=== PATIENT | male | born 1960 | race Caucasian/White ===

== ENCOUNTER 2019-01-31 02:17 | Emergency (ER) | payer MEDICARE ==
[~2019-01-31] VITALS: Ht 165.1 cm; Wt 79.0 kg
[2019-01-31 04:31] LABS: BASOPHILS % 0.9 % (0.0-2.0); EOSINOPHILS % 1.6 % (0.0-5.0); HEMATOCRIT. 36.5 % (42.0-52.0); HEMOGLOBIN. 12.1 g/dL (14.0-18.0); LYMPHOCYTES % 27.3 % (20.0-50.0); MEAN CORPUSCULAR VOLUME 84.4 fL (80.0-94.0); MEAN PLATELET VOLUME 9.7 fl (7.4-10.4); MONOCYTES % 7.8 % (2.0-8.0); NEUTROPHILS % 62.4 % (40.0-76.0); PLATELET 221 x1000/uL (130-400); RED BLOOD CELL COUNT 4.32 mill/uL (4.7-6.1); RED CELL DISTRIBUTION WIDTH 14.7 % (11.6-14.6)
[2019-01-31 04:35] LABS: CHLORIDE 102 mEq/L (98-107)
[2019-01-31] MEDS ORDERED: SODIUM CHLORIDE 0.9% 1,000 ML IV ONE ×2 (04:48→07:29)
[2019-01-31 05:25] LABS: CLARITY URINE CLEAR (CLEAR); COLOR URINE YELLOW (YELLOW); KETONES URINE NEGATIVE (NEGATIVE); LEUKOCYTE ESTERASE URINE NEGATIVE (NEGATIVE); NITRITE URINE NEGATIVE (NEGATIVE); OCCULT BLOOD URINE TRACE (NEGATIVE); PROTEIN URINE 3+ (NEGATIVE); SPECIFIC GRAVITY URINE 1.022 (1.005-1.030); UROBILINOGEN URINE 0.2 E.U./dL (0.2-1.0)
[2019-01-31] MEDS ORDERED: ACETAMINOPHEN 325MG TABLET PO ONE (05:45)
[2019-01-31] MEDS ORDERED: DOCUSATE SODIUM 250MG CAPSULE PO ONE (05:45)
[2019-01-31] MEDS ORDERED: INSULIN REGULAR (HUMULIN R) 300UNITS/3ML SUBCUT ONE (07:45)
[2019-01-31] MEDS ORDERED: MAGNESIUM/ALUMINUM HYDROXIDE/SIMETHICONE 30ML UDC PO ONE (07:45)
[2019-01-31 12:37] VITALS: BP 156/71
== END 2019-01-31 12:43 | disposition home or self-care (01) ==
LOC: ER 02:17
DX: R14.0 Abdominal distension (gaseous) (principal); K59.00 Constipation, unspecified; E11.9 Type 2 diabetes mellitus without complications; I49.9 Cardiac arrhythmia, unspecified; Z98.890 Other specified postprocedural states; Z90.89 Acquired absence of other organs
CPT/HCPCS: 36415; 74018; 80053; 81003; 82962; 83690; 85025; 96372; 99284; J1815; J7030

== ENCOUNTER 2019-02-01 17:19 | Emergency (ER) | payer BC, MEDICARE ==
[~2019-02-01] VITALS: Ht 165.1 cm; Wt 91.0 kg
[2019-02-01 19:03] LABS: BASOPHILS % 0.7 % (0.0-2.0); EOSINOPHILS % 1.2 % (0.0-5.0); HEMATOCRIT. 40.1 % (42.0-52.0); HEMOGLOBIN. 13.3 g/dL (14.0-18.0); LYMPHOCYTES % 32.4 % (20.0-50.0); MEAN CORPUSCULAR HEMOGLOBIN 27.9 pg (28.0-32.0); MEAN CORPUSCULAR VOLUME 84.2 fL (80.0-94.0); MEAN PLATELET VOLUME 9.9 fl (7.4-10.4); MONOCYTES % 6.6 % (2.0-8.0); NEUTROPHILS % 59.1 % (40.0-76.0); PLATELET 229 x1000/uL (130-400); RED BLOOD CELL COUNT 4.76 mill/uL (4.7-6.1); RED CELL DISTRIBUTION WIDTH 14.7 % (11.6-14.6)
[2019-02-01 19:06] LABS: CHLORIDE 105 mEq/L (98-107)
[2019-02-01 19:58] LABS: CLARITY URINE CLEAR (CLEAR); COLOR URINE YELLOW (YELLOW); KETONES URINE NEGATIVE (NEGATIVE); LEUKOCYTE ESTERASE URINE NEGATIVE (NEGATIVE); NITRITE URINE NEGATIVE (NEGATIVE); OCCULT BLOOD URINE TRACE (NEGATIVE); PH URINE 5.5 (4.5-8.0); PROTEIN URINE 4+ (NEGATIVE); UROBILINOGEN URINE 0.2 E.U./dL (0.2-1.0)
[2019-02-01] MEDS ORDERED: INSULIN REGULAR (HUMULIN R) UD 100 UNITS/ML SYR IV ONE (20:30)
[2019-02-01] MEDS ORDERED: SODIUM CHLORIDE 0.9% 1,000 ML IV ONE (20:30)
[2019-02-01 21:40] VITALS: BP 140/70
== END 2019-02-01 22:51 | disposition home or self-care (01) ==
LOC: ER 18:52
DX: K59.00 Constipation, unspecified (principal); E11.65 Type 2 diabetes mellitus with hyperglycemia; Z90.89 Acquired absence of other organs
CPT/HCPCS: 36415; 80053; 81003; 82962; 83690; 85025; 96360; 96361; 99283; J1815; J7030

== ENCOUNTER 2021-04-26 11:25 | Inpatient (IN) | payer BC, MEDICARE ==
[~2021-04-26] VITALS: Ht 167.6 cm; Wt 78.5 kg
[2021-04-26] MEDS ORDERED: lasix (11:35)
[2021-04-26] MEDS ORDERED: PIPERACILLIN/TAZ 3.375G PREMIX 50 ML IV ONE (17:15)
[2021-04-26] MEDS ORDERED: MORPHINE SULFATE 4 MG/ML CPJ (NOT FOR IM USE) IV STA (17:15)
[2021-04-26] MEDS ORDERED: VANCOMYCIN 1 G PREMIX 200 ML IV ONE (17:15)
[2021-04-26] MEDS ORDERED: ONDANSETRON HCL 4MG/2ML INJ IV STA (17:15)
[2021-04-26 17:46] LABS: BASOPHILS % 0.3 % (0.0-2.0); HEMOGLOBIN. 12.8 g/dL (14.0-18.0); LYMPHOCYTES % 7.2 % (20.0-50.0); MEAN CORPUSCULAR HEMOGLOBIN 26.3 pg (28.0-32.0); MEAN CORPUSCULAR VOLUME 84.1 fL (80.0-94.0); MEAN PLATELET VOLUME 8.5 fl (7.4-10.4); MONOCYTES % 5.2 % (2.0-8.0); NEUTROPHILS % 87.3 % (40.0-76.0); PLATELET 254 x1000/uL (130-400); RED BLOOD CELL COUNT 4.88 mill/uL (4.7-6.1); RED CELL DISTRIBUTION WIDTH 18.6 % (11.6-14.6)
[2021-04-26 17:50] LABS: CHLORIDE 113 mEq/L (98-107)
[2021-04-26 18:11] LABS: CREATINE KINASE 1223 IU/L (39-308)
[2021-04-26] MEDS ORDERED: ASPIRIN 81MG TABLET PO ONE (18:15)
[2021-04-26] MEDS ORDERED: FUROSEMIDE 20MG/2ML VIAL IVP ONE (19:00)
[2021-04-27] MEDS ORDERED: FUROSEMIDE 40MG/4ML VIAL IVP SCH (09:00)
[2021-04-27] MEDS: ASPIRIN 81MG TABLET PO SCH (09:11)
[2021-04-27 10:44] VITALS: BP 108/68
[2021-04-27 11:00] VITALS: BP 123/69
[2021-04-27 12:00] VITALS: BP 123/69
[2021-04-27] MEDS ORDERED: CLONIDINE 0.1MG TABLET PO PRN ×2 (12:00→18:30)
[2021-04-27] MEDS: BLOOD SUGAR DIAGNOSTIC STRIP TEST SCH ×3 (12:10→21:00)
[2021-04-27] MEDS ORDERED: LEVOFLOXACIN 500MG PREMIX 100 ML IV NR (13:00)
[2021-04-27] MEDS: HYDROCODONE/ACETAMINOPHEN 5/325MG TABLET PO PRN (14:07)
[2021-04-27] MEDS: INSULIN LISPRO 100 UNITS/ML SUBCUT SCH ×3 (14:11→21:00)
[2021-04-27 16:00] VITALS: BP 105/72
[2021-04-27] MEDS: METOPROLOL TARTRATE 25MG TABLET PO SCH ×2 (17:30→19:03)
[2021-04-27] MEDS: ENOXAPARIN 40MG/0.4ML SYR SUBCUT SCH (17:39)
[2021-04-27] MEDS ORDERED: VANCOMYCIN 1 G PREMIX 200 ML IV SCH (18:00)
[2021-04-27] MEDS ORDERED: ACETAMINOPHEN 325MG TABLET PO PRN (18:30)
[2021-04-27] MEDS ORDERED: MAGNESIUM/ALUMINUM HYDROXIDE/SIMETHICONE 30ML UDC PO PRN (18:30)
[2021-04-27] MEDS ORDERED: GUAIFENESIN 200MG/10ML SUGAR FREE UDC PO PRN (18:30)
[2021-04-27] MEDS ORDERED: ENOXAPARIN 40MG/0.4ML SYR SUBCUT SCH (18:30)
[2021-04-27] MEDS: CEFEPIME 1,000 MG in DEXTROSE 5% WATER 50 ML IV SCH (18:41)
[2021-04-27] MEDS: FUROSEMIDE 100MG/10ML VIAL IVP SCH (18:42)
[2021-04-27] MEDS ORDERED: NALOXONE HCL 0.4MG/ML VIAL IV PRN (18:45)
[2021-04-27 20:00] VITALS: BP 87/51
[2021-04-27] MEDS: SODIUM CHLORIDE 0.9% INJ 3ML FLUSH IVF SCH (22:33)
[2021-04-28] VITALS: BP 87/42
[2021-04-28] MEDS ORDERED: DEXT 5%/0.9% NACL 500 ML IV ONE (06:30)
[2021-04-28] MEDS ORDERED: DEXT 5%/0.9% NACL 500 ML IV SCH (06:30)
[2021-04-28] MEDS: FUROSEMIDE 100MG/10ML VIAL IVP SCH ×2 (07:03→18:27)
[2021-04-28] MEDS: SODIUM CHLORIDE 0.9% INJ 3ML FLUSH IVF SCH ×3 (07:03→22:00)
[2021-04-28] MEDS: CEFEPIME 1,000 MG in DEXTROSE 5% WATER 50 ML IV SCH ×2 (07:04→17:24)
[2021-04-28] MEDS: BLOOD SUGAR DIAGNOSTIC STRIP TEST SCH ×4 (07:10→21:00)
[2021-04-28] MEDS: INSULIN LISPRO 100 UNITS/ML SUBCUT SCH ×4 (07:40→21:00)
[2021-04-28 08:00] VITALS: BP 90/48
[2021-04-28] MEDS: ASPIRIN 81MG TABLET PO SCH (08:58)
[2021-04-28] MEDS: METOPROLOL TARTRATE 25MG TABLET PO SCH ×2 (09:00→21:00)
[2021-04-28 12:00] VITALS: BP 95/56
[2021-04-28] MEDS ORDERED: LEVOFLOXACIN 250MG PREMIX 50 ML IV SCH (13:00)
[2021-04-28 16:00] VITALS: BP 100/49
[2021-04-28] MEDS: ENOXAPARIN 40MG/0.4ML SYR SUBCUT SCH (16:07)
[2021-04-28] MEDS ORDERED: METOLAZONE 2.5MG TABLET PO SCH (17:30)
[2021-04-28 20:00] VITALS: BP 130/73
[2021-04-28] MEDS: HYDROCODONE/ACETAMINOPHEN 5/325MG TABLET PO PRN (21:40)
[2021-04-28] MEDS: ZOLPIDEM TARTRATE 5MG TABLET PO PRN (23:03)
[2021-04-29] VITALS: BP 127/78
[2021-04-29 04:00] VITALS: BP 87/40
[2021-04-29] MEDS: SODIUM CHLORIDE 0.9% INJ 3ML FLUSH IVF SCH ×3 (05:37→21:57)
[2021-04-29] MEDS: FUROSEMIDE 100MG/10ML VIAL IVP SCH ×2 (05:37→18:00)
[2021-04-29] MEDS: CEFEPIME 1,000 MG in DEXTROSE 5% WATER 50 ML IV SCH (05:37)
[2021-04-29] MEDS: INSULIN LISPRO 100 UNITS/ML SUBCUT SCH ×4 (06:54→21:00)
[2021-04-29] MEDS: BLOOD SUGAR DIAGNOSTIC STRIP TEST SCH ×4 (06:54→21:55)
[2021-04-29 08:00] VITALS: BP 119/94
[2021-04-29] MEDS: ASPIRIN 81MG TABLET PO SCH (09:00)
[2021-04-29] MEDS: METOPROLOL TARTRATE 25MG TABLET PO SCH ×2 (09:00→20:37)
[2021-04-29 12:00] VITALS: BP 79/52
[2021-04-29] MEDS: DEXTROSE 50% WATER 50ML SYRINGE IV PRN (12:29)
[2021-04-29] MEDS ORDERED: VANCOMYCIN 1 G PREMIX 200 ML IV SCH (13:00)
[2021-04-29 16:00] VITALS: BP 109/61
[2021-04-29] MEDS: CEFTRIAXONE 1,000 MG in DEXTROSE 5% WATER 50 ML IV SCH (16:28)
[2021-04-29] MEDS: ENOXAPARIN 30MG/0.3ML SYR SUBCUT SCH (18:00)
[2021-04-29 20:00] VITALS: BP 114/51
[2021-04-29] MEDS: METRONIDAZOLE 500MG TABLET PO SCH ×3 (20:36→21:57)
[2021-04-30] VITALS: BP 107/65
[2021-04-30 04:00] VITALS: BP 108/62
[2021-04-30] MEDS: SODIUM CHLORIDE 0.9% INJ 3ML FLUSH IVF SCH ×3 (05:57→21:10)
[2021-04-30] MEDS: FUROSEMIDE 100MG/10ML VIAL IVP SCH ×2 (05:59→11:44)
[2021-04-30] MEDS: BLOOD SUGAR DIAGNOSTIC STRIP TEST SCH ×4 (05:59→20:54)
[2021-04-30] MEDS: INSULIN LISPRO 100 UNITS/ML SUBCUT SCH ×4 (05:59→20:54)
[2021-04-30 08:00] VITALS: BP 104/62
[2021-04-30] MEDS ORDERED: SODIUM BICARBONATE 8.4% 1 MEQ/ML 50ML SYR IV SCH (09:00)
[2021-04-30] MEDS: ASPIRIN 81MG TABLET PO SCH ×2 (09:00→10:03)
[2021-04-30] MEDS: METRONIDAZOLE 500MG TABLET PO SCH ×3 (09:00→21:02)
[2021-04-30] MEDS: METOPROLOL TARTRATE 25MG TABLET PO SCH ×3 (09:00→21:02)
[2021-04-30] MEDS: SODIUM POLYSTYRENE SULFONATE 15 G/60 ML BOT PO SCH ×2 (10:00→10:07)
[2021-04-30 12:00] VITALS: BP 94/54
[2021-04-30] MEDS: CEFTRIAXONE 1,000 MG in DEXTROSE 5% WATER 50 ML IV SCH (16:11)
[2021-04-30] MEDS: ENOXAPARIN 30MG/0.3ML SYR SUBCUT SCH (17:57)
[2021-04-30 20:00] VITALS: BP 110/85
[2021-04-30] MEDS: HYDROCODONE/ACETAMINOPHEN 5/325MG TABLET PO PRN (21:03)
[2021-05-01] VITALS: BP 111/72
[2021-05-01] MEDS: ZOLPIDEM TARTRATE 5MG TABLET PO PRN (01:49)
[2021-05-01 04:00] VITALS: BP 99/77
[2021-05-01] MEDS: FUROSEMIDE 100MG/10ML VIAL IVP SCH ×2 (05:39→18:00)
[2021-05-01] MEDS: SODIUM CHLORIDE 0.9% INJ 3ML FLUSH IVF SCH ×3 (05:40→21:02)
[2021-05-01] MEDS: BLOOD SUGAR DIAGNOSTIC STRIP TEST SCH ×4 (06:23→21:04)
[2021-05-01] MEDS: INSULIN LISPRO 100 UNITS/ML SUBCUT SCH ×4 (06:23→21:00)
[2021-05-01 08:07] VITALS: BP 119/75
[2021-05-01] MEDS: METOPROLOL TARTRATE 25MG TABLET PO SCH ×2 (09:00→21:00)
[2021-05-01] MEDS: ASPIRIN 81MG TABLET PO SCH (11:01)
[2021-05-01] MEDS: METRONIDAZOLE 500MG TABLET PO SCH ×2 (11:02→20:58)
[2021-05-01 12:21] VITALS: BP 121/78
[2021-05-01] MEDS: HYDROCODONE/ACETAMINOPHEN 5/325MG TABLET PO PRN ×2 (15:51→21:00)
[2021-05-01] MEDS: CEFTRIAXONE 1,000 MG in DEXTROSE 5% WATER 50 ML IV SCH (15:51)
[2021-05-01 16:17] VITALS: BP 126/77
[2021-05-01] MEDS: ENOXAPARIN 30MG/0.3ML SYR SUBCUT SCH (18:00)
[2021-05-01 20:00] VITALS: BP 127/73
[2021-05-02] VITALS: BP 117/59
[2021-05-02] MEDS: FUROSEMIDE 100MG/10ML VIAL IVP SCH ×2 (05:55→17:23)
[2021-05-02] MEDS: SODIUM CHLORIDE 0.9% INJ 3ML FLUSH IVF SCH ×3 (05:55→22:00)
[2021-05-02] MEDS: BLOOD SUGAR DIAGNOSTIC STRIP TEST SCH ×4 (06:08→20:25)
[2021-05-02] MEDS: INSULIN LISPRO 100 UNITS/ML SUBCUT SCH ×3 (06:08→12:40)
[2021-05-02 08:00] VITALS: BP 125/58
[2021-05-02] MEDS: ASPIRIN 81MG TABLET PO SCH ×2 (08:55→09:00)
[2021-05-02] MEDS: METRONIDAZOLE 500MG TABLET PO SCH ×2 (08:55→20:25)
[2021-05-02] MEDS: METOPROLOL TARTRATE 25MG TABLET PO SCH ×2 (08:55→08:58)
[2021-05-02 09:56] LABS: BASOPHILS % 0.3 % (0.0-2.0); EOSINOPHILS % 0.8 % (0.0-5.0); HEMOGLOBIN. 15.1 g/dL (14.0-18.0); LYMPHOCYTES % 8.2 % (20.0-50.0); MEAN CORPUSCULAR HEMOGLOBIN 26.3 pg (28.0-32.0); MEAN CORPUSCULAR VOLUME 82.1 fL (80.0-94.0); MEAN PLATELET VOLUME 8.5 fl (7.4-10.4); MONOCYTES % 7.7 % (2.0-8.0); PLATELET 204 x1000/uL (130-400); RED BLOOD CELL COUNT 5.72 mill/uL (4.7-6.1); RED CELL DISTRIBUTION WIDTH 18.4 % (11.6-14.6)
[2021-05-02 10:16] LABS: CHLORIDE 107 mEq/L (98-107)
[2021-05-02 12:00] VITALS: BP 140/110
[2021-05-02] MEDS ORDERED: SODIUM POLYSTYRENE SULFONATE 15 G/60 ML BOT PO NR (13:00)
[2021-05-02 16:00] VITALS: BP 103/65
[2021-05-02] MEDS: CEFTRIAXONE 1,000 MG in DEXTROSE 5% WATER 50 ML IV SCH (16:08)
[2021-05-02] MEDS: ENOXAPARIN 30MG/0.3ML SYR SUBCUT SCH ×2 (17:23→17:30)
[2021-05-02 20:00] VITALS: BP 105/59
[2021-05-02] MEDS ORDERED: NALOXONE HCL 0.4MG/ML VIAL IV PRN (21:00)
[2021-05-02] MEDS: HYDROCODONE/ACETAMINOPHEN 5/325MG TABLET PO PRN (21:39)
[2021-05-03] VITALS: BP 107/57
[2021-05-03 04:00] VITALS: BP 108/59
[2021-05-03] MEDS: FUROSEMIDE 100MG/10ML VIAL IVP SCH (05:34)
[2021-05-03] MEDS: SODIUM CHLORIDE 0.9% INJ 3ML FLUSH IVF SCH ×3 (05:35→21:03)
[2021-05-03 05:56] LABS: HEMATOCRIT. 46.7 % (42.0-52.0); HEMOGLOBIN. 14.8 g/dL (14.0-18.0); MEAN CORPUSCULAR HEMOGLOBIN 26.1 pg (28.0-32.0); MEAN CORPUSCULAR VOLUME 82.1 fL (80.0-94.0); MEAN PLATELET VOLUME 8.9 fl (7.4-10.4); PLATELET 197 x1000/uL (130-400); RED BLOOD CELL COUNT 5.68 mill/uL (4.7-6.1); RED CELL DISTRIBUTION WIDTH 18.4 % (11.6-14.6)
[2021-05-03 06:35] LABS: PHOSPHORUS 8.2 mg/dL (2.5-4.9)
[2021-05-03] MEDS: BLOOD SUGAR DIAGNOSTIC STRIP TEST SCH ×2 (07:10→20:17)
[2021-05-03] MEDS: INSULIN LISPRO 100 UNITS/ML SUBCUT SCH ×3 (07:40→21:00)
[2021-05-03 08:00] VITALS: BP 105/58
[2021-05-03] MEDS: ASPIRIN 81MG TABLET PO SCH (09:00)
[2021-05-03] MEDS: METRONIDAZOLE 500MG TABLET PO SCH (09:00)
[2021-05-03] MEDS ORDERED: SODIUM BICARBONATE 8.4% 1 MEQ/ML 50ML SYR IV NR (09:30)
[2021-05-03 10:33] LABS: T4 FREE 0.55 ng/dL (0.76-1.46)
[2021-05-03 12:00] VITALS: BP 106/51
[2021-05-03] MEDS ORDERED: CEFTRIAXONE 1 G PREMIX 50 ML IV SCH (15:30)
[2021-05-03 16:00] VITALS: BP 101/57
[2021-05-03] MEDS: CEFTRIAXONE 1,000 MG in DEXTROSE 5% WATER 50 ML IV SCH (16:43)
[2021-05-03] MEDS: METRONIDAZOLE 500 MG PREMIX 100 ML IV SCH (16:43)
[2021-05-03] MEDS: ENOXAPARIN 30MG/0.3ML SYR SUBCUT SCH (16:44)
[2021-05-03] MEDS: DEXTROSE 50% WATER 50ML SYRINGE IV PRN (18:06)
[2021-05-03 20:00] VITALS: BP 107/50
[2021-05-03 22:28] LABS: PLATELET ESTIMATE NORMAL
[2021-05-03] MEDS: DIPHENHYDRAMINE 50MG/ML VIAL IV PRN (22:53)
[2021-05-04] VITALS: BP 119/69
[2021-05-04 04:00] VITALS: BP 104/81
[2021-05-04] MEDS: BLOOD SUGAR DIAGNOSTIC STRIP TEST SCH ×4 (05:29→20:30)
[2021-05-04] MEDS: SODIUM CHLORIDE 0.9% INJ 3ML FLUSH IVF SCH ×3 (05:42→21:36)
[2021-05-04] MEDS: LEVOTHYROXINE SODIUM 25MCG TABLET PO SCH (05:43)
[2021-05-04] MEDS: INSULIN LISPRO 100 UNITS/ML SUBCUT SCH ×4 (05:43→21:00)
[2021-05-04 08:00] VITALS: BP 129/73
[2021-05-04] MEDS: HYDROCODONE/ACETAMINOPHEN 5/325MG TABLET PO PRN (08:24)
[2021-05-04] MEDS: ASPIRIN 81MG TABLET PO SCH (08:31)
[2021-05-04] MEDS: METRONIDAZOLE 500 MG PREMIX 100 ML IV SCH (08:35)
[2021-05-04 11:01] LABS: BASOPHILS % 0.7 % (0.0-2.0); EOSINOPHILS % 1.7 % (0.0-5.0); HEMATOCRIT. 39.2 % (42.0-52.0); HEMOGLOBIN. 13.1 g/dL (14.0-18.0); LYMPHOCYTES % 10.6 % (20.0-50.0); MEAN CORPUSCULAR HEMOGLOBIN 26.6 pg (28.0-32.0); MEAN CORPUSCULAR VOLUME 79.9 fL (80.0-94.0); MEAN PLATELET VOLUME 8.1 fl (7.4-10.4); MONOCYTES % 10.2 % (2.0-8.0); NEUTROPHILS % 76.8 % (40.0-76.0); PLATELET 186 x1000/uL (130-400); RED BLOOD CELL COUNT 4.91 mill/uL (4.7-6.1); RED CELL DISTRIBUTION WIDTH 18.9 % (11.6-14.6)
[2021-05-04 11:04] LABS: CHLORIDE 109 mEq/L (98-107)
[2021-05-04 12:00] VITALS: BP 118/64
[2021-05-04] MEDS: HYDROCODONE/ACETAMINOPHEN 10/325MG TABLET PO PRN (14:22)
[2021-05-04] MEDS: CEFTRIAXONE 1,000 MG in DEXTROSE 5% WATER 50 ML IV SCH (17:00)
[2021-05-04] MEDS: ENOXAPARIN 30MG/0.3ML SYR SUBCUT SCH (18:00)
[2021-05-04 20:00] VITALS: BP 100/44
[2021-05-05] VITALS (7 sets, daily range): BP systolic 101–124; BP diastolic 50–75
[2021-05-05] MEDS: BLOOD SUGAR DIAGNOSTIC STRIP TEST SCH (05:18)
[2021-05-05] MEDS: INSULIN LISPRO 100 UNITS/ML SUBCUT SCH (05:18)
[2021-05-05] MEDS: LEVOTHYROXINE SODIUM 25MCG TABLET PO SCH (05:21)
[2021-05-05] MEDS: SODIUM CHLORIDE 0.9% INJ 3ML FLUSH IVF SCH (05:21)
[2021-05-05] MEDS ORDERED: SODIUM BICARBONATE 8.4% 1 MEQ/ML 50ML SYR IV NR (09:00)
[2021-05-05] MEDS: METRONIDAZOLE 500 MG PREMIX 100 ML IV SCH (09:37)
[2021-05-05] MEDS: ASPIRIN 81MG TABLET PO SCH (09:37)
[2021-05-05] MEDS: FUROSEMIDE 100MG/10ML VIAL IVP SCH (09:38)
[2021-05-05] MEDS: CEFTRIAXONE 1,000 MG in DEXTROSE 5% WATER 50 ML IV SCH (17:16)
[2021-05-05] MEDS: ENOXAPARIN 30MG/0.3ML SYR SUBCUT SCH (17:17)
[2021-05-05] MEDS ORDERED: PANTOPRAZOLE 40MG DR TABLET PO SCH (23:30)
[2021-05-06 04:00] VITALS: BP 125/97
[2021-05-06] MEDS: LEVOTHYROXINE SODIUM 25MCG TABLET PO SCH (06:18)
[2021-05-06 08:43] VITALS: BP 129/76
[2021-05-06] MEDS: FUROSEMIDE 100MG/10ML VIAL IVP SCH (09:44)
[2021-05-06] MEDS: ASPIRIN 81MG TABLET PO SCH (09:44)
[2021-05-06] MEDS: METRONIDAZOLE 500 MG PREMIX 100 ML IV SCH (09:44)
[2021-05-06 12:34] VITALS: BP 102/59
[2021-05-06 16:32] VITALS: BP 117/50
[2021-05-06] MEDS: SODIUM CHLORIDE 0.9% INJ 3ML FLUSH IVF SCH ×2 (17:14→20:59)
[2021-05-06] MEDS: CEFTRIAXONE 1,000 MG in DEXTROSE 5% WATER 50 ML IV SCH (17:14)
[2021-05-06] MEDS: ENOXAPARIN 30MG/0.3ML SYR SUBCUT SCH (17:16)
[2021-05-06 20:00] VITALS: BP 107/78
[2021-05-06] MEDS: FAMOTIDINE 20MG TABLET PO SCH (20:56)
[2021-05-06] MEDS: HYDROCODONE/ACETAMINOPHEN 10/325MG TABLET PO PRN (20:57)
[2021-05-07] VITALS: BP 149/59
[2021-05-07 04:00] VITALS: BP 121/66
[2021-05-07] MEDS: SODIUM CHLORIDE 0.9% INJ 3ML FLUSH IVF SCH ×3 (06:08→21:09)
[2021-05-07] MEDS: LEVOTHYROXINE SODIUM 25MCG TABLET PO SCH (06:10)
[2021-05-07 08:00] VITALS: BP 120/72
[2021-05-07] MEDS: ASPIRIN 81MG TABLET PO SCH (08:31)
[2021-05-07] MEDS: FUROSEMIDE 40MG TABLET PO SCH (08:32)
[2021-05-07] MEDS: METRONIDAZOLE 500MG TABLET PO SCH (08:34)
[2021-05-07 12:00] VITALS: BP 134/75
[2021-05-07] MEDS: HYDROCODONE/ACETAMINOPHEN 10/325MG TABLET PO PRN (15:42)
[2021-05-07 16:00] VITALS: BP 121/62
[2021-05-07] MEDS: CEFTRIAXONE 1,000 MG in DEXTROSE 5% WATER 50 ML IV SCH (17:09)
[2021-05-07] MEDS: ENOXAPARIN 30MG/0.3ML SYR SUBCUT SCH (17:12)
[2021-05-07 20:00] VITALS: BP 119/74
[2021-05-07] MEDS: FAMOTIDINE 20MG TABLET PO SCH (21:09)
[2021-05-07] MEDS: METOPROLOL TARTRATE 25MG TABLET PO SCH (21:09)
[2021-05-07] MEDS: DIPHENHYDRAMINE 50MG/ML VIAL IV PRN (21:10)
[2021-05-08] VITALS: BP 112/76
[2021-05-08] MEDS: DIPHENHYDRAMINE 50MG/ML VIAL IV PRN (02:34)
[2021-05-08] MEDS: HYDROCODONE/ACETAMINOPHEN 10/325MG TABLET PO PRN ×4 (02:39→21:32)
[2021-05-08 04:00] VITALS: BP 123/81
[2021-05-08] MEDS: LEVOTHYROXINE SODIUM 25MCG TABLET PO SCH (05:22)
[2021-05-08] MEDS: SODIUM CHLORIDE 0.9% INJ 3ML FLUSH IVF SCH ×3 (05:22→21:33)
[2021-05-08 08:00] VITALS: BP 124/71
[2021-05-08] MEDS: METRONIDAZOLE 500MG TABLET PO SCH (08:29)
[2021-05-08] MEDS: FUROSEMIDE 40MG TABLET PO SCH (08:29)
[2021-05-08] MEDS: ASPIRIN 81MG TABLET PO SCH (08:29)
[2021-05-08] MEDS: METOPROLOL TARTRATE 25MG TABLET PO SCH ×2 (08:30→20:43)
[2021-05-08] MEDS ORDERED: SODIUM POLYSTYRENE SULFONATE 15 G/60 ML BOT PO NR (09:30)
[2021-05-08] MEDS ORDERED: CALCIUM CHLORIDE 1GM/10ML SYR IV NR (09:30)
[2021-05-08 12:00] VITALS: BP 116/72
[2021-05-08 15:45] LABS: HEMOGLOBIN. 13.2 g/dL (14.0-18.0); MEAN CORPUSCULAR HEMOGLOBIN 25.9 pg (28.0-32.0); MEAN CORPUSCULAR VOLUME 80.7 fL (80.0-94.0); MEAN PLATELET VOLUME 8.5 fl (7.4-10.4); PLATELET 153 x1000/uL (130-400); RED BLOOD CELL COUNT 5.08 mill/uL (4.7-6.1); RED CELL DISTRIBUTION WIDTH 19.3 % (11.6-14.6)
[2021-05-08 16:00] VITALS: BP 131/68
[2021-05-08 16:05] LABS: CHLORIDE 107 mEq/L (98-107)
[2021-05-08 16:14] LABS: HDL CHOLESTEROL 10 mg/dL (40-59); LDL CHOLESTEROL 83 mg/dL (5-100)
[2021-05-08 16:32] LABS: PHOSPHORUS 8.1 mg/dL (2.5-4.9)
[2021-05-08 16:54] LABS: PLATELET ESTIMATE NORMAL
[2021-05-08] MEDS: CEFTRIAXONE 1,000 MG in DEXTROSE 5% WATER 50 ML IV SCH (17:40)
[2021-05-08] MEDS: ENOXAPARIN 30MG/0.3ML SYR SUBCUT SCH (17:41)
[2021-05-08 20:00] VITALS: BP 126/72
[2021-05-08] MEDS: FAMOTIDINE 20MG TABLET PO SCH (20:44)
[2021-05-09] VITALS (7 sets, daily range): BP systolic 114–129; BP diastolic 65–89
[2021-05-09] MEDS: SODIUM CHLORIDE 0.9% INJ 3ML FLUSH IVF SCH ×3 (06:17→21:18)
[2021-05-09] MEDS: LEVOTHYROXINE SODIUM 25MCG TABLET PO SCH (06:17)
[2021-05-09] MEDS: ASPIRIN 81MG TABLET PO SCH (08:40)
[2021-05-09] MEDS: FUROSEMIDE 40MG TABLET PO SCH (08:40)
[2021-05-09] MEDS: METRONIDAZOLE 500MG TABLET PO SCH (08:40)
[2021-05-09] MEDS: METOPROLOL TARTRATE 25MG TABLET PO SCH ×2 (08:41→21:00)
[2021-05-09] MEDS: CALCIUM ACETATE 667MG CAPSULE PO SCH ×3 (10:02→16:54)
[2021-05-09] MEDS: ENOXAPARIN 30MG/0.3ML SYR SUBCUT SCH ×2 (16:54→17:07)
[2021-05-09] MEDS: CEFTRIAXONE 1,000 MG in DEXTROSE 5% WATER 50 ML IV SCH (16:54)
[2021-05-09] MEDS: ACETAMINOPHEN 325MG TABLET PO PRN (21:18)
[2021-05-09] MEDS: FAMOTIDINE 20MG TABLET PO SCH (21:18)
[2021-05-10] VITALS: BP 118/64
[2021-05-10 04:00] VITALS: BP 111/66
[2021-05-10] MEDS: LEVOTHYROXINE SODIUM 25MCG TABLET PO SCH (06:22)
[2021-05-10] MEDS: CALCIUM ACETATE 667MG CAPSULE PO SCH ×3 (06:22→16:28)
[2021-05-10] MEDS: SODIUM CHLORIDE 0.9% INJ 3ML FLUSH IVF SCH ×3 (06:22→21:13)
[2021-05-10] MEDS ORDERED: FUROSEMIDE 40MG TABLET PO SCH (09:00)
[2021-05-10] MEDS: FUROSEMIDE 20MG TABLET PO SCH (09:40)
[2021-05-10] MEDS: ASPIRIN 81MG TABLET PO SCH (09:40)
[2021-05-10] MEDS: METOPROLOL TARTRATE 25MG TABLET PO SCH ×2 (09:41→20:40)
[2021-05-10] MEDS: METRONIDAZOLE 500MG TABLET PO SCH (09:41)
[2021-05-10] MEDS: ONDANSETRON HCL 4MG/2ML INJ IV PRN ×2 (13:15→20:39)
[2021-05-10] MEDS: CEFTRIAXONE 1,000 MG in DEXTROSE 5% WATER 50 ML IV SCH (16:28)
[2021-05-10] MEDS: ENOXAPARIN 30MG/0.3ML SYR SUBCUT SCH (16:28)
[2021-05-10 20:00] VITALS: BP 125/80
[2021-05-10] MEDS: FAMOTIDINE 20MG TABLET PO SCH (20:39)
[2021-05-10] MEDS: ACETAMINOPHEN 325MG TABLET PO PRN (21:13)
[2021-05-11] VITALS: BP 132/85
[2021-05-11 04:00] VITALS: BP 103/61
[2021-05-11] MEDS: SODIUM CHLORIDE 0.9% INJ 3ML FLUSH IVF SCH ×2 (05:49→14:43)
[2021-05-11] MEDS: ONDANSETRON HCL 4MG/2ML INJ IV PRN ×2 (05:49→09:23)
[2021-05-11] MEDS: LEVOTHYROXINE SODIUM 25MCG TABLET PO SCH (06:22)
[2021-05-11] MEDS: CALCIUM ACETATE 667MG CAPSULE PO SCH ×2 (06:22→14:43)
[2021-05-11 08:00] VITALS: BP 124/58
[2021-05-11] MEDS: FUROSEMIDE 20MG TABLET PO SCH (09:18)
[2021-05-11] MEDS: METOPROLOL TARTRATE 25MG TABLET PO SCH (09:23)
[2021-05-11] MEDS: ASPIRIN 81MG TABLET PO SCH (09:23)
[2021-05-11 12:00] VITALS: BP 123/63
[2021-05-11 15:58] VITALS: BP 123/63
[2021-05-11 16:00] VITALS: BP 133/74
== END 2021-05-11 21:09 | DRG 871 ==
LOC: ER 11:25 → EDBEDREQ 18:22 → MICUSO 20:12 → EDBEDREQ 20:14 → EDBEDREQSVC 20:14 → EDBEDREQTM 20:14 → 8WST 04-27 09:23
PROVIDERS: ADMIT Internal Medicine; ATTEND Internal Medicine
DX: A41.53 Sepsis due to Serratia (principal); G93.41 Metabolic encephalopathy; I21.4 Non-ST elevation (NSTEMI) myocardial infarction; I50.23 Acute on chronic systolic (congestive) heart failure; E87.1 Hypo-osmolality and hyponatremia; E87.2 Acidosis; I42.0 Dilated cardiomyopathy; I13.0 Hypertensive heart and chronic kidney disease with heart failure and stage 1 through stage 4 chronic kidney disease, or unspecified chronic kidney disease; L03.115 Cellulitis of right lower limb; L03.116 Cellulitis of left lower limb; L97.919 Non-pressure chronic ulcer of unspecified part of right lower leg with unspecified severity; N17.9 Acute kidney failure, unspecified; L97.929 Non-pressure chronic ulcer of unspecified part of left lower leg with unspecified severity; R18.8 Other ascites; E11.22 Type 2 diabetes mellitus with diabetic chronic kidney disease; E11.51 Type 2 diabetes mellitus with diabetic peripheral angiopathy without gangrene; E87.5 Hyperkalemia; I25.10 Atherosclerotic heart disease of native coronary artery without angina pectoris; I27.20 Pulmonary hypertension, unspecified; I34.0 Nonrheumatic mitral (valve) insufficiency; I49.3 Ventricular premature depolarization; I87.2 Venous insufficiency (chronic) (peripheral); I87.8 Other specified disorders of veins; N18.30 Chronic kidney disease, stage 3 unspecified; E03.9 Hypothyroidism, unspecified; Z66 Do not resuscitate; Z51.5 Encounter for palliative care; S90.821A Blister (nonthermal), right foot, initial encounter; S90.822A Blister (nonthermal), left foot, initial encounter; Z20.822 Contact with and (suspected) exposure to COVID-19; R26.89 Other abnormalities of gait and mobility; S90.812A Abrasion, left foot, initial encounter; Z82.49 Family history of ischemic heart disease and other diseases of the circulatory system; Z83.3 Family history of diabetes mellitus; Z91.14 Patient's other noncompliance with medication regimen; Z91.15 Patient's noncompliance with renal dialysis; W18.39XA Other fall on same level, initial encounter; Y93.89 Activity, other specified; Y92.89 Other specified places as the place of occurrence of the external cause; Y99.9 Unspecified external cause status
CPT/HCPCS: 36415; 71045; 74176; 76770; 80048; 80053; 80061; 80076; 80202; 82550; 82962; 83036; 83605; 83735; 83880; 84100; 84439; 84443; 84484; 85025; 87077; 87186; 87426; 93005; 93306; 93923; 93970; 97022; 97161; 97164; 99291; C1893; J0692; J0696; J1200; J1650; J1815; J1940; J1956; J2270; J2405; J2543; J3370; J3490; J7040; J7042; J7060